=== PATIENT | female | born 1965 | race Asian ===

== ENCOUNTER 2016-09-05 12:59 | Outpatient (CLI) | payer OTHER | END 2016-09-05 13:08 | disposition short-term general hospital (02) | LOC: AMB 12:59 | DX: M25.512 Pain in left shoulder (principal); R07.81 Pleurodynia; R00.0 Tachycardia, unspecified; R04.0 Epistaxis; V49.88XA Car occupant (driver) (passenger) injured in other specified transport accidents, initial encounter; Y92.414 Local residential or business street as the place of occurrence of the external cause | CPT/HCPCS: A0425; A0427 ==